=== PATIENT | male | born 1995 | race Caucasian/White ===

== ENCOUNTER 2022-08-18 01:26 | Emergency (ER) | payer OTHER ==
[~2022-08-18] VITALS: Ht 190.5 cm; Wt 68.0 kg
[2022-08-18 02:18] LABS: HEMATOCRIT 38.9 % (36.7-47.1); MEAN CORPUSCULAR HEMOGLOBIN 26.7 uug (23.8-33.4); MEAN CORPUSCULAR VOLUME 82.2 fL (73.0-96.2); PLATELET COUNT (AUTO) 306 K/uL (152-348)
[2022-08-18 02:25] LABS: CARBON DIOXIDE 28 mmol/L (21-32); CHLORIDE 106 mmol/L (98-107); CREATININE 0.8 mg/dL (0.6-1.3); GLUCOSE 91 mg/dL (74-106); POTASSIUM 3.9 mmol/L (3.5-5.1); UREA NITROGEN, BLOOD 14 mg/dL (7-18)
[2022-08-18 02:31] LABS: ALANINE AMINOTRANSFERASE 30 U/L (16-63); ALKALINE PHOSPHATASE 76 U/L (50-136); ASPARTATE AMINOTRANSFERASE 34 U/L (15-37); BILIRUBIN,DIRECT < 0.1 mg/dL (0.0-0.2); BILIRUBIN,TOTAL 0.2 mg/dL (0.2-1.0); TOTAL PROTEIN, SERUM 6.6 g/dL (6.4-8.2)
[2022-08-18 02:41] LABS: ETHANOL < 3 MG/DL (0-0)
[2022-08-18] MEDS ORDERED: SYRI-614 SUBCUT (04:20)
[2022-08-18] MEDS ORDERED: CHOL100099 PO (04:20)
[2022-08-18] MEDS ORDERED: INSU100V28 SQ (04:20)
[2022-08-18] MEDS ORDERED: INSU100V7 SQ (04:20)
[2022-08-18 06:56] VITALS: BP 127/72
== END 2022-08-18 06:00 | disposition home or self-care (01) ==
LOC: ER 01:26
DX: E11.9 Type 2 diabetes mellitus without complications (principal); Z79.4 Long term (current) use of insulin; E83.51 Hypocalcemia; F17.210 Nicotine dependence, cigarettes, uncomplicated; Z86.79 Personal history of other diseases of the circulatory system
CPT/HCPCS: 36415; 70450; 71045; 83605; 83735; 85025; 93005; A4663; G0480